=== PATIENT | male | born 1970 | race Caucasian/White ===

== ENCOUNTER 2022-01-09 13:22 | Emergency (ER) | payer SELFPAY ==
[~2022-01-09] VITALS: Ht 175.3 cm; Wt 82.0 kg
[2022-01-09 13:27] VITALS: BP 148/78
[2022-01-09] MEDS ORDERED: LORAZEPAM 0.5MG TABLET PO ONE (14:00)
[2022-01-09 14:56] LABS: BASOPHILS % 0.2 % (0.0-2.0); EOSINOPHILS % 0.3 % (0.0-5.0); HEMATOCRIT. 47.7 % (42.0-52.0); HEMOGLOBIN. 16.7 g/dL (14.0-18.0); LYMPHOCYTES % 12.5 % (20.0-50.0); MEAN CORPUSCULAR HEMOGLOBIN 30.8 pg (28.0-32.0); MEAN CORPUSCULAR VOLUME 87.8 fL (80.0-94.0); MEAN PLATELET VOLUME 8.2 fl (7.4-10.4); MONOCYTES % 6.6 % (2.0-8.0); NEUTROPHILS % 80.4 % (40.0-76.0); PLATELET 377 x1000/uL (130-400); RED BLOOD CELL COUNT 5.43 mill/uL (4.7-6.1); RED CELL DISTRIBUTION WIDTH 13.8 % (11.6-14.6)
[2022-01-09 15:01] LABS: CHLORIDE 106 mEq/L (98-107)
[2022-01-09] MEDS ORDERED: LORA-249 MT (17:25)
== END 2022-01-09 18:12 | disposition home or self-care (01) ==
LOC: ER 13:42
DX: R00.2 Palpitations (principal)
CPT/HCPCS: 36415; 80053; 84484; 85025; 93005; 99284